=== PATIENT | male | born 1935 | race Caucasian/White ===

== ENCOUNTER 2018-09-02 18:26 | Inpatient (IN) | payer OTHER | END 2018-09-05 16:05 | disposition home or self-care (01) | LOC: OVERFLOW 09-03 01:36 → ER 18:26 → OVERFLOW 09-03 02:33 → EAST 09-03 04:38 | DX: I50.31 Acute diastolic (congestive) heart failure (principal); J96.00 Acute respiratory failure, unspecified whether with hypoxia or hypercapnia; J45.901 Unspecified asthma with (acute) exacerbation; J40 Bronchitis, not specified as acute or chronic; R09.02 Hypoxemia; I10 Essential (primary) hypertension; J44.9 Chronic obstructive pulmonary disease, unspecified ==